=== PATIENT | female | born 1965 | race Two or more races ===

== ENCOUNTER 2019-10-30 13:57 | Emergency (ER) | payer OTHER, SELFPAY ==
[~2019-10-30] VITALS: Ht 170.2 cm; Wt 78.0 kg
[2019-10-30 14:29] VITALS: BP 130/80
== END 2019-10-30 16:00 | disposition home or self-care (01) ==
LOC: ER 15:38
DX: Z03.818 Encounter for observation for suspected exposure to other biological agents ruled out (principal)
CPT/HCPCS: 87635; 99283; C9803